=== PATIENT | female | born 1980 | race Caucasian/White ===

== ENCOUNTER 2020-07-25 12:43 | Outpatient (REF) | payer OTHER, SELFPAY | END 2020-07-25 12:44 | disposition home or self-care (01) | LOC: HO.LAB 12:43 | PROVIDERS: Visit Provider Internal Medicine | DX: Z20.828 Contact with and (suspected) exposure to other viral communicable diseases (principal) | CPT/HCPCS: C9803; U0003 ==

== ENCOUNTER 2020-08-09 09:31 | Outpatient (REF) | payer OTHER, SELFPAY ==
[2020-08-09 10:39] LABS: Estimated Average Glucose 105 mg/dL; Hemoglobin A1c % 5.3 %
[2020-08-09 10:44] LABS: Alanine Aminotransferase 16 U/L (0-31); Albumin Level 4.3 g/dL (3.5-5.0); Alkaline Phosphatase 66 U/L (39-117); Anion Gap 13 (12-20); Aspartate Amino Transferase 17 U/L (5-31); Bilirubin Total 0.4 mg/dL (0.0-1.0); Blood Urea Nitrogen 14 mg/dL (9-16); C Reactive Protein 0.42 mg/dL (< or = 0.50); Calcium 8.6 mg/dL (8.4-10.2); Carbon Dioxide 24 mmol/L (22-29); Chloride 108 mmol/L (96-108); Cholesterol 181 mg/dL; Estimated Glomerular Filt Rate > 60; Glucose Fasting 90 mg/dL (60-99); HDL Cholesterol 33 mg/dL; LDL Cholesterol Calculated 120 mg/dl; Potassium 4.5 mmol/l (3.3-5.1); Sodium 140 mmol/L (135-145); Total Protein 7.2 g/dL (6.5-8.0); Triglycerides 140 mg/dL
[2020-08-09 11:00] LABS: Erythrocyte Sedimentation Rate 7 MM/HR (0-20)
== END 2020-08-09 09:32 | disposition home or self-care (01) ==
LOC: HO.LAB 09:31
PROVIDERS: PCP Internal Medicine; Visit Provider Physician Assistant
DX: R51.9 Headache, unspecified (principal); Z13.1 Encounter for screening for diabetes mellitus; Z13.220 Encounter for screening for lipoid disorders
CPT/HCPCS: 36415; 80053; 80061; 83036; 84443; 85652; 86140

== ENCOUNTER 2020-08-23 09:40 | Outpatient (REF) | payer OTHER, SELFPAY ==
--- NOTE | 2020-08-23 09:43 | CT_ITS ---
EXAMINATION: CT HEAD WITHOUT CONTRAST CLINICAL INFORMATION: Headache. COMPARISON: MR brain and CT had dated 12/09/2016. TECHNIQUE: Contiguous axial imaging was performed from the skull base to vertex without intravenous administration of contrast. This CT examination was performed using dose optimization techniques as appropriate, variously including the following: *Automated exposure control *Adjustment of mA and/or kV according to patient size (this includes techniques or standardized protocols for targeted exams where dose is matched to indication/reason for exam; i.e. extremities or head) *Use of iterative reconstruction technique DLP: 747 mGy-cm. FINDINGS: There is no evidence of acute intracranial hemorrhage or territorial infarction. No abnormal mass effect or midline shift is seen. Ahmadi to white matter differentiation is well preserved. No extra-axial fluid collections are identified. The ventricles are normal in size. There is no abnormal attenuation within the brain parenchyma. The osseous structures and soft tissues are normal. The mastoid air cells and visualized portions of the paranasal sinuses are well aerated. CT/CT head/brain wo con IMPRESSION: No acute intracranial hemorrhage or mass effect.
== END 2020-08-23 09:41 | disposition home or self-care (01) ==
LOC: HO.CT 09:40
PROVIDERS: PCP Internal Medicine; Visit Provider Physician Assistant
DX: R51.9 Headache, unspecified (principal)
CPT/HCPCS: 70450

== ENCOUNTER → 2021-04-20 12:14 | Outpatient (REF) | payer OTHER, SELFPAY ==
--- NOTE | 2021-04-20 12:19 | ECG_ITS ---
Test Reason : PREOP Blood Pressure : / mmHG Vent. Rate : 055 BPM Atrial Rate : 055 BPM P-R Int : 138 ms QRS Dur : 074 ms QT Int : 456 ms P-R-T Axes : 060 055 040 degrees QTc Int : 436 ms Sinus bradycardia Otherwise normal ECG When compared with ECG of 08-JUL-2018 12:59, Heart rate has decreased T wave inversion no longer evident in Inferior leads Referred By: Rosamaira Khan Electronically Signed By:MENA MCKEON
[2021-04-20 13:01] LABS: MANUAL DIFF FLAG NO
[2021-04-20 13:13] LABS: INTERNATIONAL NORM RATIO 1.1 (0.9-1.1)
[2021-04-20 13:22] LABS: Basophils Absolute Auto 0.1 X10*3/uL (0.0-0.2); Eosinophils Absolute Auto 0.1 X10*3/uL (0.0-0.4); Eosinophils Percent Auto 1.1 % (0-4); Hemoglobin 12.2 g/dl (12.0-16.0); Imm Gran Abs Auto 0.03 X10*3/uL (0.00-0.03); Imm Gran Pct Auto 0.6 % (0.0-0.4); Lymphocytes Absolute Auto 2.7 X10*3/uL (1.2-4.9); Lymphocytes Percent Auto 52.3 % (20-40); Mean Corpuscular Hemoglobin 29.4 pg (27.0-33.0); Mean Corpuscular Volume 89.2 fL (80-98); Monocytes Absolute Auto 0.5 X10*3/uL (0.1-1.2); Monocytes Percent Auto 9.5 % (2-11); Neutrophils Absolute Auto 1.9 X10*3/uL (2.0-8.3); Neutrophils Percent Auto 35.5 % (45-73); Platelet Count 207 X10*3/uL (160-400); Red Blood Count 4.15 X10*6/uL (4.20-5.50); Red Cell Distribution Width 13.9 % (11.0-16.0); White Blood Count 5.2 X10*3/uL (4.8-10.8)
[2021-04-20 13:30] LABS: Estimated Average Glucose 103 mg/dL; Hemoglobin A1c % 5.2 %
[2021-04-20 13:46] LABS: Alanine Aminotransferase 17 U/L (0-31); Albumin Level 4.4 g/dL (3.5-5.0); Alkaline Phosphatase 76 U/L (39-117); Anion Gap 11 (12-20); Aspartate Amino Transferase 20 U/L (5-31); Bilirubin Total 0.3 mg/dL (0.0-1.0); Blood Urea Nitrogen 11 mg/dL (9-16); Calcium 9.2 mg/dL (8.4-10.2); Carbon Dioxide 23 mmol/L (22-29); Chloride 107 mmol/L (96-108); Estimated Glomerular Filt Rate > 60; Glucose Fasting 86 mg/dL (60-99); Sodium 137 mmol/L (135-145); Total Protein 7.1 g/dL (6.5-8.0)
[2021-04-20 13:51] LABS: HCG Quantitative < 2 mIU/mL; T4 Thyroxine 5.4 ug/dL (4.5-12.0); Thyroid Stimulating Hormone 1.16 uIU/mL (0.32-4.0)
[2021-04-20 13:56] LABS: Appearance Urine HAZY; Color Urine YELLOW; Glucose Urine UA NEG (NEG); Leukocyte Esterase Urine NEG (NEG); Nitrite Urine NEG (NEG); Urine Blood NEG (NEG); Urine Ketones NEG (NEG); Urine Protein NEG (NEG-TRACE)
[2021-04-21 04:57] LABS: HIV AB/AG Nonreactive (Nonreactive); HIV Num 1 0.07 S/CO (0.00-0.99)
[2021-04-23 15:16] LABS: Triiodothyronine T3 Total 97 ng/dL (76-181)
== END ==
LOC: HO.CARD 12:14
PROVIDERS: PCP Internal Medicine; Visit Provider Internal Medicine
DX: Z01.818 Encounter for other preprocedural examination (principal); G43.909 Migraine, unspecified, not intractable, without status migrainosus
CPT/HCPCS: 36415; 80053; 81003; 83036; 84436; 84443; 84480; 84702; 85025; 85610; 85730; 87389; 93005

== ENCOUNTER 2021-12-05 12:15 | Outpatient (REF) | payer OTHER, SELFPAY ==
[2021-12-05 13:33] LABS: Alanine Aminotransferase 16 U/L (0-31); Albumin Level 4.6 g/dL (3.5-5.0); Alkaline Phosphatase 72 U/L (39-117); Anion Gap 10 (12-20); Aspartate Amino Transferase 17 U/L (5-31); Bilirubin Total 0.4 mg/dL (0.0-1.0); Blood Urea Nitrogen 13 mg/dL (9-16); Carbon Dioxide 27 mmol/L (22-29); Chloride 105 mmol/L (96-108); Estimated Glomerular Filt Rate > 60; Glucose Random 83 mg/dL (60-115); Potassium 4.4 mmol/L (3.3-5.1); Sodium 138 mmol/L (135-145); Total Protein 7.8 g/dL (6.5-8.0)
[2021-12-05 13:39] LABS: Appearance Urine HAZY; Color Urine YELLOW; Glucose Urine UA NEG (NEG); Leukocyte Esterase Urine NEG (NEG); Nitrite Urine NEG (NEG); PH 6.5 (5.0-8.0); UACC Culture Trigger NO; Urine Blood 3+ (NEG); Urine Ketones NEG (NEG); Urine Protein TRACE MG/DL (NEG-TRACE)
[2021-12-05 14:06] LABS: RBC Urine 50-75 /HPF (0); Squamous Epithelial Cell Urine 1+ /LPF; WBC Urine 0-2 /HPF (0-4)
== END 2021-12-05 12:16 | disposition home or self-care (01) ==
LOC: HO.LAB 12:15
PROVIDERS: PCP Internal Medicine; Visit Provider Nurse Practitioner Family
DX: R35.0 Frequency of micturition (principal); Z98.890 Other specified postprocedural states
CPT/HCPCS: 36415; 80053; 81001

== ENCOUNTER 2022-04-06 09:46 | Emergency (ER) | payer OTHER, SELFPAY ==
[2022-04-06 10:39] VITALS: BP 106/81; PULSE 63; RESP 20; TEMP 36.7; O2SAT 98; BMI 28.3
[2022-04-06] MEDS: Acetaminophen 325 MG TABLET 650 MG PO (10:58)
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
== END 2022-04-06 14:09 | disposition home or self-care (01) ==
PROVIDERS: Emergency Provider Emergency Medicine; PCP Internal Medicine
DX: M54.2 Cervicalgia (principal); M79.10 Myalgia, unspecified site; R42 Dizziness and giddiness; Z87.891 Personal history of nicotine dependence; Z79.899 Other long term (current) drug therapy
CPT/HCPCS: 99283

== ENCOUNTER 2022-09-21 08:27 | Outpatient (REF) | payer OTHER, SELFPAY ==
[2022-09-21 09:22] LABS: Alanine Aminotransferase 15 U/L (0-31); Albumin Level 4.4 g/dL (3.5-5.0); Alkaline Phosphatase 88 U/L (39-117); Anion Gap 12 (12-20); Aspartate Amino Transferase 16 U/L (5-31); Bilirubin Total 0.5 mg/dL (0.0-1.0); Blood Urea Nitrogen 15 mg/dL (9-16); Calcium 9.2 mg/dL (8.4-10.2); Carbon Dioxide 23 mmol/L (22-29); Chloride 108 mmol/L (96-108); Cholesterol 196 mg/dL; Estimated Glomerular Filt Rate > 60; Glucose Fasting 92 mg/dL (60-99); HDL Cholesterol 36 mg/dL; LDL Cholesterol Calculated 136 mg/dl; Potassium 4.1 mmol/L (3.3-5.1); Sodium 139 mmol/L (135-145); Total Protein 7.4 g/dL (6.5-8.0); Triglycerides 124 mg/dL
== END 2022-09-21 08:28 | disposition home or self-care (01) ==
LOC: HO.LAB 08:27
PROVIDERS: PCP Internal Medicine; Visit Provider Internal Medicine
DX: Z00.00 Encounter for general adult medical examination without abnormal findings (principal); E78.5 Hyperlipidemia, unspecified
CPT/HCPCS: 36415; 80053; 80061

== ENCOUNTER → 2022-10-15 10:31 | Outpatient (BNVA) | payer OTHER, SELFPAY | PROVIDERS: PCP Internal Medicine; Visit Provider Internal Medicine | DX: S13.4XXD Sprain of ligaments of cervical spine, subsequent encounter (principal); M54.12 Radiculopathy, cervical region; M47.816 Spondylosis without myelopathy or radiculopathy, lumbar region | CPT/HCPCS: 99202 ==

== ENCOUNTER 2022-11-08 14:43 | Outpatient (RCR) | payer OTHER, SELFPAY ==
--- NOTE | 2022-11-08 16:33 | MHC.PT.EP ---
[facility] [place] Office [place] Office [place] Office [address] Flavio Dubose [address] [phone] F: [phone] F: [phone] F: [phone] F: [phone] Physical Therapy Plan of Care Date of Evaluation: Date of Surgery: Diagnosis: cervical radiculopathy lumbar spondylosis without myeolopathy or radiculopathy Assessment: Patient is a 41 y.o. Bulgarian speaking female who is referred to PT by Dr. Nestor Mercedes MD with Dx of cervical radiculopathy lumbar spondylosis without myeolopathy or radiculopathy. There is multi-level cervical disc protrusion seen on MRI, worst at C4-C5 which shows disc extrusion. Patient impairments include poor posture, pain, radicular sxs, limited ROM, weakness. 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 Patient will benefit from skilled PT to address aforementioned impairments and functional limitations to meet established goals. Frequency and Duration: The patient will be seen 2x/week for 4 weeks Short Term Goals: 2 weeks Patient demonstrates consistency and independence with HEP to self manage symptoms. Patient presents without slouched sitting posture to reduce neck and back strain to tolerate prolonged sitting to drive. Slope Runner Goals: 4 weeks Patient presents with increased cervical rotation 65 degrees bilaterally to look over shoulders when driving. Patient presents with increased lumbar flexion 80 degrees to be able to bend for work tasks. Treatment Plan: Modalities to reduce pain, spasms and effusion. Manual therapy to restore motion and function. Therapeutic exercise to improve strength and flexibility. Neuromuscular re-education for posture and balance. Therapeutic activities to return to functional activities of daily living. Electronically signed by: Imelda Flores, PT, DPT Please sign and return to therapist. Thank you for your referral.
--- NOTE | 2022-12-19 17:05 | MHC.PT.DC ---
[facility] [place] Office [place] Office [place] Office [address] Flavio Dubose [address] [phone] F: [phone] F: [phone] F: [phone] F: [phone] Physical Therapy Discharge Report Diagnosis: cervical radiculopathy lumbar spondylosis without myeolopathy or radiculopathy Date of Surgery: Date of Evaluation: 11/08/22 Date of Discharge: 12/19/22 Treatments to Date: 1 Cancellations to Date: No Shows to Date: 7 Discharge Status: Visit Non-compliance Discharge Summary: Patient did not show to any appointment after her initial evaluation. She is discharged for non compliance with attendance policy. Electronically signed by: Imelda Flores PT, DPT Please sign and return to therapist. Thank you for your referral.
== END 2022-12-19 17:05 | disposition home or self-care (01) ==
LOC: HO.PT 14:43
PROVIDERS: PCP Internal Medicine; Visit Provider Internal Medicine
DX: M54.12 Radiculopathy, cervical region (principal); M47.816 Spondylosis without myelopathy or radiculopathy, lumbar region
CPT/HCPCS: 97110; 97162

== ENCOUNTER 2023-11-05 14:57 | Outpatient (AMB) | payer OTHER, SELFPAY ==
[2023-11-05 15:11] VITALS: BP 118/80; PULSE 80; O2SAT 98; BMI 29.8
--- NOTE | 2023-11-05 15:11 | MHC.PC.OV ---
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: No Accompanied by: Self / Same As Patient Allergies No Known Allergies [No Known Allergies*] Allergy (Verified 11/05/23 15:34) Medication List - Last Reconciled 11/05/23 by Rosamaria Khan MD cyclobenzaprine 10 mg PO TID PRN 30 days ibuprofen 600 mg PO Q8H PRN lidocaine 5% 1 patch topical DAILY sumatriptan succinate 50 mg PO Q2-4H PRN 30 days topiramate 25 mg PO BEDTIME 90 days Tobacco use date assessed: 11/05/23 Dental Screening Dental Screen Date: 11/05/23 Did you have a dental visit in the last 12 months?: Yes Did you have a dental problem in the last 6 months where you did not have access to dental care?: No Was dental information given to patient?: Patient has dentist HPI HPI Comments History of Present Illness Details This is a 42-year-old female that comes for preop evaluation for liposuction and fat transfer to breast scheduled for 11/26/2023. She denies any chest pain or shortness of breath. Has 5-7 Mets of ADLs. EKG and labs are pending for medical clearance. [facility] Medical History (Updated 11/05/23 @ 15:39 by Rosamaria Khan MD) Overweight (BMI 25.0-29.9) Migraines Surgical History History of kidney surgery Tubal ligation status H/O LEEP Family History Father Heart problem Hypertension Mother Hypertension Parkinson disease Maternal Grandmother Diabetes Hypertension Family/Other FH: mental illness Social History Housing: House Alcohol intake: current Alcohol intake frequency: holidays/special occasions only Alcohol type: hard liquor Patient Tobacco Use Status: Former Tobacco user Tobacco use type: Cigarette e-Cigarette/Vaping Use: Never Used Second Hand Smoke Exposure: No service: No Current occupational status: employed Current occupational exposures/hazards: No Cognitive needs: No Hearing needs: No Vision needs: Yes Questionnaire PHQ-9 Over the last 2 weeks, how often have you been bothered by any of the following problems? 1. Little interest or pleasure in doing things: not at all 2. Feeling down, depressed, or hopeless: not at all 3. Trouble falling or staying asleep, or sleeping too much: not at all 4. Feeling tired or having little energy: not at all 5. Poor appetite or overeating: not at all 6. Feeling bad about yourself - or that you are a failure or have let yourself or your family down: not at all 7. Trouble concentrating on things, such as reading the newspaper or watching television: not at all 8. Moving or speaking so slowly that other people could have noticed. Or the opposite - being so fidgety or restless that you have been moving around a lot more than usual: not at all 9. Thoughts that you would be better off or of hurting yourself in some way: not at all Total score: 0 Depression Screening Interpretation: Negative Depression Screening Done: Yes 88147 - PHQ-9 Billing: Yes Source: Developed by Drs. Asaf Adler, Rosa Elena Locke, James Mendez and colleagues, with an educational veronica from [employer]. Thrive Questionnaire Date Thrive assessed: 11/05/23 I am a: Patient What is your living situation today?: I have a steady place to live Within the past 12 months, did the food you bought not last and you didn't have the money to get more?: Never true Within the past 12 months, did you worry whether your food would run out before you got money to buy more?: Never true Do you have trouble paying for medicines?: No Do you have trouble getting transportation to medical appointments?: No Do you have trouble paying your heating and electricity bill?: No Do you have trouble taking care of your child, family member or friend?: No Do you have trouble with day-to-day activities such as bathing, preparing meals, shopping, managing finances, etc.?: No Are you currently unemployed and looking for a job?: No Are you interested in more education?: No Please select the resources that you would like help with: None Currently or been in a relationship where the following occur: no concerns reported THRIVE Score: 0 AUDIT C Alcohol Use Questionnaire (AUDIT-C) 1. How often do you have a drink containing alcohol?: Monthly or less 2. How many drinks containing alcohol do you have on a typical day when you are drinking?: 1 or 2 3. How often do you have six or more drinks on one occasion?: Never Total Score: 1 Score Reviewed/Action Taken: No KATARZYNA-7 AMB Questionnaire KATARZYNA-7 Date KATARZYNA - 7 assessed: 11/05/23 Feeling nervous, anxious, or on edge: 0 = Not at all Not being able to stop or control worryin = Not at all Worrying too much about different things: 0 = Not at all Trouble relaxin = Not at all Being so restless that it is hard to sit still: 0 = Not at all Becoming easily annoyed or irritable: 0 = Not at all Feeling afraid as if something awful might happen: 0 = Not at all Total KATARZYNA-7 score (0-4 normal; 5-9 mild; 10-14 moderate; 15-21 severe): 0 Source: Developed by Drs. Asaf Adler, Rosa Elena Locke, James Mendez and colleagues, with an educational veronica from [employer]. KATARZYNA-7 Assessment Billing KATARZYNA-7 Assessment Tool: KATARZYNA-7 Assessment 51775 Review of Systems Const All systems reviewed & are unremarkable except as noted in HPI and below Eyes Reports no additional complaints, Denies change in vision and Denies other visual disturbances Card Denies chest pain at rest, Denies chest pain with activity, Denies edema, Denies irregular heart rhythm, Denies claudication, Denies dyspnea, Denies dyspnea on exertion, Denies orthopnea, Denies paroxysmal nocturnal dyspnea and Denies slow heart rate Resp Denies cough, Denies dyspnea and Denies dyspnea on exertion GI Denies abdominal pain, Denies change in bowel habits, Denies excessive flatus, Denies nausea and Denies vomiting Denies urinary incontinence, Denies urinary hesitancy and Denies urinary urgency Musc Denies abnormal gait, Denies atrophy, Denies deformity and Denies limited range of motion Skin/Breast Denies bleeding lesions, Denies changing lesions and Denies rash Neuro Denies abnormal gait, Denies behavioral changes, Denies confusion and Denies lack of coordination Psych Denies behavioral changes and Denies confusion Physical exam (Primary Care) Vital Signs: Last Vital Signs Pulse 80 11/05/23 15:11 BP 118/80 11/05/23 15:11 Pulse Ox 98 11/05/23 15:11 Oxygen Delivery Method Room Air 11/05/23 15:11 BMI result Body Mass Index 29.8 Tobacco/Smoking Status: Tobacco use Status Tobacco use date assessed 11/05/23 11/05/23 15:21 Patient Tobacco Use Status Former Tobacco user 11/05/23 15:21 Tobacco use type Cigarette 11/05/23 15:21 e-Cigarette/Vaping Use Never Used 11/05/23 15:21 PHQ-9: PHQ-9 Score PHQ-9: Total score 0 11/05/23 15:25 Depression Screening Interpretation: Negative Thrive Assessment: Date of Thrive Assessment Date Thrive assessed 11/05/23 11/05/23 15:25 Currently or been in a relationship where the following occur: no concerns reported Const General: No confusion Orientation/consciousness: patient oriented x3 and No confusion Resp Effort & Inspection: normal respiratory effort Auscultation: clear to auscultation bilaterally Cardio Jugular venous distension: no JVD Rate: regular rate Rhythm: regular rhythm Heart sounds: S1 normal heart sound present and S2 normal heart sound present Neuro General: patient oriented x3, no focal motor deficits and No confusion Extrem General: Yes full ROM Psych Appearance: grossly normal Assessment and Plan Assessment & Plan (1) Pre-op evaluation: Code(s): Z01.818 - Encounter for other preprocedural examination Plan: EKG and labs pending for medical clearance. Orders: Orders ECG 12 lead EKG Today Z818 - Encounter for other preprocedural examination HIV Ab/Ag Today Z.818 - Encounter for other preprocedural examination Prothrombin Time INR Today Z.818 - Encounter for other preprocedural examination Partial Thromboplastin Time Today Z.818 - Encounter for other preprocedural examination XR chest 2V Today Z01.818 - Encounter for other preprocedural examination MM screening mammo BI Today Z01.818 - Encounter for other preprocedural examination, Z12.31 - Encounter for screening mammogram for malignant neoplasm of breast Complete Blood Count Auto Diff Today D64.9 - Anemia, unspecified, Z01.818 - Encounter for other preprocedural examination Comprehensive Fulda. Panel Fast Today Z.818 - Encounter for other preprocedural examination Thyroid Stimulating Hormone Today Z01.818 - Encounter for other preprocedural examination Medications: Refilled lidocaine 5% leave on most painful area for up to 12 hrs 1 patch topical DAILY 15 ea 0RF cyclobenzaprine 10 mg PO TID 30 days PRN 90 tabs 1RF muscle spasm ibuprofen 600 mg PO Q8H PRN 10 tabs 0RF pain Coding Level of Care Code Est Pt Level 3 (10602) Diagnoses Pre-op evaluation Z01.818 Additional Codes KATARZYNA-7 Assessment Billing - KATARZYNA-7 Assessment Tool: KATARZYNA-7 Assessment 43430 ([id number]) Time Spent (min) 19
== END 2023-11-05 15:46 | disposition home or self-care (01) ==
PROVIDERS: PCP Internal Medicine; Visit Provider Internal Medicine
DX: Z01.818 Encounter for other preprocedural examination (principal)
CPT/HCPCS: 99213

== ENCOUNTER 2023-11-06 09:15 | Outpatient (REF) | payer OTHER, SELFPAY ==
--- NOTE | ~2023-11-06 | XR_ITS ---
EXAMINATION: XR CHEST CLINICAL INFORMATION: Preprocedure chest x-ray. COMPARISON: 07/08/2018 TECHNIQUE: 2 views of the chest were obtained. FINDINGS: There is no gross pneumothorax. Mild dextroscoliosis of the thoracic spine. Heart size is normal. No pleural effusion. No focal consolidation to suggest pneumonia. XR/XR chest 2V IMPRESSION: No evidence of pneumonia.
--- NOTE | 2023-11-06 09:32 | ECG_ITS ---
Test Reason : preop Blood Pressure : / mmHG Vent. Rate : 060 BPM Atrial Rate : 060 BPM P-R Int : 136 ms QRS Dur : 074 ms QT Int : 442 ms P-R-T Axes : 020 045 024 degrees QTc Int : 442 ms Normal sinus rhythm with sinus arrhythmia Normal ECG When compared with ECG of 20-APR-2021 12:22, No significant change was found Referred By: Rosamaria Khan Electronically Signed By:Alexis Bravo
[2023-11-06 09:36] LABS: Hematocrit 36.1 % (37.0-47.0); Mean Corpuscular HGB Conc 33.2 g/dl (31.0-35.0); Mean Corpuscular Hemoglobin 29.1 pg (27.0-33.0); Mean Corpuscular Volume 87.6 fL (80.0-98.0); Mean Platelet Volume 11.9 fL (9.4-12.3); Platelet Count 238 X10*3/uL (160-400); Red Blood Count 4.12 X10*6/uL (4.20-5.50); Red Cell Distribution Width 13.4 % (11.0-16.0)
[2023-11-06 09:39] LABS: WBC ABN SCTR FOR CBC 1
[2023-11-06 09:41] LABS: INTERNATIONAL NORM RATIO 0.9 (0.9-1.1); Prothrombin Time 11.5 SEC (11.1-13.3)
[2023-11-06 09:44] LABS: Partial Thromboplastin Time 31.8 SEC (26.0-36.8)
[2023-11-06 10:08] LABS: Alanine Aminotransferase 22 U/L (0-31); Albumin Level 4.2 g/dL (3.5-5.0); Alkaline Phosphatase 85 U/L (39-117); Anion Gap 10 (12-20); Aspartate Amino Transferase 18 U/L (5-31); Bilirubin Total 0.3 mg/dL (0.0-1.0); Blood Urea Nitrogen 14 mg/dL (9-16); Calcium 9.1 mg/dL (8.4-10.2); Carbon Dioxide 24 mmol/L (22-29); Chloride 110 mmol/L (96-108); Estimated Glomerular Filt Rate > 60; Glucose Fasting 95 mg/dL (60-99); Sodium 140 mmol/L (135-145); Total Protein 7.5 g/dL (6.5-8.0)
[2023-11-06 10:18] LABS: HIV AB/AG Nonreactive (Nonreactive); HIV Num 1 0.07 S/CO (0.00-0.99)
[2023-11-06 10:25] LABS: Thyroid Stimulating Hormone 1.23 uIU/mL (0.32-4.0)
[2023-11-06 10:33] LABS: Band Neutrophils Percent 1 % (3-5); Eosinophils Absolute Manual 0.2 X10*3/uL (0.0-0.4); Eosinophils Percent Manual 4 % (0-4); Lymphocytes Absolute Manual 2.4 X10*3/uL (1.2-4.9); Lymphocytes Percent Manual 60 % (20-40); Monocytes Absolute Manual 0.2 X10*3/uL (0.1-1.2); Monocytes Percent Manual 4 % (2-11); Neutrophils Absolute Manual 1.3 X10*3/uL (2.0-8.3); Neutrophils Percent Manual 31 % (45-73)
[2023-11-06 10:35] LABS: Large Platelet PRESENT; Platelet Estimate NORMAL (NORMAL); Platelet Morphology Comment NOTED; RBC Morphology NORMAL
== END 2023-11-06 09:16 | disposition home or self-care (01) ==
LOC: HO.LAB 09:15
PROVIDERS: PCP Internal Medicine; Visit Provider Internal Medicine
DX: Z01.818 Encounter for other preprocedural examination (principal); Z11.4 Encounter for screening for human immunodeficiency virus [HIV]
CPT/HCPCS: 36415; 71046; 80053; 84443; 85007; 85027; 85610; 85730; 87389; 93005

== ENCOUNTER → 2023-11-06 09:32 | Outpatient (BNV) | payer OTHER, SELFPAY | PROVIDERS: PCP Internal Medicine; Visit Provider Internal Medicine Cardiovascular Disease | DX: Z01.818 Encounter for other preprocedural examination (principal) | CPT/HCPCS: 93010 ==

== ENCOUNTER 2023-11-09 09:42 | Outpatient (REF) | payer OTHER, SELFPAY | END 2023-11-09 09:43 | disposition home or self-care (01) | LOC: HO.MAMMO 09:42 | PROVIDERS: PCP Internal Medicine; Visit Provider Internal Medicine | DX: Z12.31 Encounter for screening mammogram for malignant neoplasm of breast (principal) | CPT/HCPCS: 77063; 77067 ==

== ENCOUNTER → 2023-11-09 10:15 | Outpatient (BNV) | payer OTHER, SELFPAY | PROVIDERS: PCP Internal Medicine; Visit Provider Radiology Diagnostic Radiology | DX: Z12.31 Encounter for screening mammogram for malignant neoplasm of breast (principal) | CPT/HCPCS: 77063; 77067 ==

== ENCOUNTER 2024-03-17 13:15 | Outpatient (REF) | payer OTHER, SELFPAY ==
--- NOTE | ~2024-03-17 | US_ITS ---
EXAMINATION: US DIAGNOSTIC ULTRASOUND BREAST, BILATERAL CLINICAL INFORMATION: 43-year-old female complaining of palpable foci all 4 quadrants of left breast and palpable focus 12:00 right breast. Patient describes a history of having fat injections into her breasts in [place]. COMPARISON: None contributory. TECHNIQUE: Ultrasound of both breasts was performed with real-time elmore scale imaging and color Doppler. Attention was focused to the 12:00 axis right breast to correlate with the palpable focus, and all 4 quadrants of the left breast. FINDINGS: RIGHT BREAST: -In the 12:00 axis of the right breast, 3 cm from the nipple, there is a partially cystic hyperechoic oval circumscribed mass with edge shadowing no posterior features. No internal Doppler flow. This measures 3.7 x 3.0 x 2.2 cm. This correlates with the palpable focus of concern. LEFT BREAST: There are numerous oval masses which are echogenic with similar ultrasound features, circumscribed, in the 12:00 axis, 3 cm from the nipple, in the 3:00 axis, 3 cm from the nipple, 5:00 axis VII cm from the nipple, as well as 7:00 axis IV cm from the nipple. Largest on the left measures 2.8 x 2.3 x 1.6 cm. Findings and bilateral breasts are numerous foci of fat necrosis, certainly related to the patient's description of having fat injections into her breasts in the recent past. No suspicious findings in either breast. US/US breast BI limited mamm only IMPRESSION: Benign findings bilateral breasts related to fat necrosis due to patient's stated history of surgery as described above. No findings suspicious for malignancy. Recommend clinical management and follow-up, otherwise recommend 1 year mammography. ASSESSMENT: BI-RADS 2: Benign RECOMMENDATION: 1. Patient should be managed based on the clinical impression. 2. Otherwise, routine annual screening mammography. This patient's information was entered into a reminder system with a target due date for their next mammogram.
== END 2024-03-17 13:16 | disposition home or self-care (01) ==
LOC: HO.MAMMO 13:15
PROVIDERS: PCP Internal Medicine; Visit Provider Surgery
DX: N63.0 Unspecified lump in unspecified breast (principal)
CPT/HCPCS: 76642

== ENCOUNTER → 2024-03-17 13:30 | Outpatient (BNV) | payer OTHER, SELFPAY | PROVIDERS: PCP Internal Medicine; Visit Provider Radiology Diagnostic Radiology | DX: N63.15 Unspecified lump in the right breast, overlapping quadrants (principal); N63.25 Unspecified lump in the left breast, overlapping quadrants | CPT/HCPCS: 76642 ==

== ENCOUNTER 2024-05-27 08:54 | Outpatient (AMB) | payer OTHER, SELFPAY ==
--- NOTE | 2024-05-27 08:58 | MHC.PC.OV ---
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 Mammogram done 2023. Pap smear done 2023 as per patient was normal. She complains of migraines that has been happening more frequently and would like to see Neurology. Also has left hand pain with numbness and tingling. Positive Phalen and Tinel test. I will order nerve conduction study and refer her to ortho. She had a breast augmentation and an abdominoplasty in November of this year and now has developed bilateral breast masses. She did contact plastic surgeon in [place] [address] and had an ultrasound of both breasts done in March showing multiple benign breast masses. Plastic surgeon wanted another ultrasound of the breast bilateral. [facility] Medical History (Updated 05/27/24 @ 09:26 by Rosamaria Khan MD) Overweight (BMI 25.0-29.9) Migraines Surgical History (Updated 05/27/24 @ 09:30 by Rosamaria Khan MD) H/O breast augmentation H/O abdominoplasty History of kidney surgery Tubal ligation status H/O LEEP Family History Father Heart problem Hypertension Mother Hypertension Parkinson disease Maternal Grandmother Diabetes Hypertension Family/Other FH: mental illness Social History (Updated 05/27/24 @ 09:13 by Rosamaria Khan MD) Housing: House Alcohol intake: current Alcohol intake frequency: holidays/special occasions only Alcohol type: hard liquor Patient Tobacco Use Status: Former Tobacco user Tobacco use type: Cigarette e-Cigarette/Vaping Use: Never Used Second Hand Smoke Exposure: No service: No Current occupational status: unemployed Cognitive needs: No Hearing needs: No Vision needs: Yes Questionnaire PHQ-9 Over the last 2 weeks, how often have you been bothered by any of the following problems? 1. Little interest or pleasure in doing things: not at all 2. Feeling down, depressed, or hopeless: not at all 3. Trouble falling or staying asleep, or sleeping too much: nearly every day 4. Feeling tired or having little energy: several days 5. Poor appetite or overeating: not at all 6. Feeling bad about yourself - or that you are a failure or have let yourself or your family down: not at all 7. Trouble concentrating on things, such as reading the newspaper or watching television: not at all 8. Moving or speaking so slowly that other people could have noticed. Or the opposite - being so fidgety or restless that you have been moving around a lot more than usual: not at all 9. Thoughts that you would be better off or of hurting yourself in some way: not at all Total score: 4 Depression Screening Interpretation: Positive Depression Screening Follow-up: Existing condition and Follow-up Visit Requested Depression Screening Done: Yes 46501 - PHQ-9 Billing: Yes Source: Developed by Drs. Asaf Adler, Rosa Elena Locke, James Mendez and colleagues, with an educational veronica from [employer]. Thrive Questionnaire Date Thrive assessed: 05/27/24 I am a: Patient What is your living situation today?: I have a steady place to live Within the past 12 months, did the food you bought not last and you didn't have the money to get more?: Often true Within the past 12 months, did you worry whether your food would run out before you got money to buy more?: Often true Do you have trouble paying for medicines?: No Do you have trouble getting transportation to medical appointments?: No Do you have trouble paying your heating and electricity bill?: No Do you have trouble taking care of your child, family member or friend?: No Do you have trouble with day-to-day activities such as bathing, preparing meals, shopping, managing finances, etc.?: No Are you currently unemployed and looking for a job?: I choose not to answer this question Are you interested in more education?: No Please select the resources that you would like help with: None Currently or been in a relationship where the following occur: No concerns reported THRIVE Score: 2 AUDIT C Alcohol Use Questionnaire (AUDIT-C) 1. How often do you have a drink containing alcohol?: Monthly or less 2. How many drinks containing alcohol do you have on a typical day when you are drinking?: 1 or 2 3. How often do you have six or more drinks on one occasion?: Never Total Score: 1 Score Reviewed/Action Taken: No KATARZYNA-7 AMB Questionnaire KATARZYNA-7 Date KATARZYNA - 7 assessed: 05/27/24 Feeling nervous, anxious, or on edge: 0 = Not at all Not being able to stop or control worryin = Not at all Worrying too much about different things: 0 = Not at all Trouble relaxin = Not at all Being so restless that it is hard to sit still: 0 = Not at all Becoming easily annoyed or irritable: 0 = Not at all Feeling afraid as if something awful might happen: 0 = Not at all Total KATARZYNA-7 score (0-4 normal; 5-9 mild; 10-14 moderate; 15-21 severe): 0 Source: Developed by Drs. Asaf Adler, Rosa Elena Locke, James Mendez and colleagues, with an educational veronica from [employer]. KATARZYNA-7 Assessment Billing KATARZYNA-7 Assessment Tool: KATARZYNA-7 Assessment 66819 Review of Systems Const All systems reviewed & are unremarkable except as noted in HPI and below Reports headache(s) ENT Reports headache(s) Card Denies chest pain at rest, Denies chest pain with activity, Denies edema, Denies irregular heart rhythm, Denies claudication, Denies dyspnea, Denies dyspnea on exertion, Denies orthopnea, Denies paroxysmal nocturnal dyspnea and Denies slow heart rate Resp Denies cough, Denies dyspnea and Denies dyspnea on exertion GI Denies abdominal pain, Denies change in bowel habits, Denies excessive flatus, Denies nausea and Denies vomiting Musc Reports arthralgias, Reports numbness and Reports tingling Skin/Breast Reports breast pain and Reports breast mass Neuro Reports headache(s), Reports numbness and Reports tingling Physical exam (Primary Care) Vital Signs: Last Vital Signs BP 136/82 05/27/24 09:00 BMI result Body Mass Index 28.3 BMI Assessment/Plan discussion: High BMI High, discussed plan: lifestyle, weight reduction, dietary and physical activity Tobacco/Smoking Status: Tobacco use Status Tobacco use date assessed 11/05/23 05/27/24 09:05 Patient Tobacco Use Status Former Tobacco user 05/27/24 09:13 Tobacco use type Cigarette 05/27/24 09:13 e-Cigarette/Vaping Use Never Used 05/27/24 09:13 PHQ-9: PHQ-9 Score PHQ-9: Total score 4 05/27/24 10:20 Depression Screening Interpretation: Positive Depression Screening Follow-up: Existing condition and Follow-up Visit Requested Thrive Assessment: Date of Thrive Assessment Date Thrive assessed 05/27/24 05/27/24 09:05 Currently or been in a relationship where the following occur: No concerns reported HENMT Head: Yes normal to inspection, Yes normocephalic and Yes atraumatic Ears: external ears normal Eyes General: appearance normal, both eyes and all related structures Eyelids: Yes eyelids normal Conjunctivae: conjunctivae normal Neck Neck: Yes normal visual inspection and Yes supple Resp Effort & Inspection: normal respiratory effort Auscultation: clear to auscultation bilaterally Cardio Jugular venous distension: no JVD Rate: regular rate Rhythm: regular rhythm Heart sounds: S1 normal heart sound present and S2 normal heart sound present GI Inspection: Yes normal to inspection Palpation (GI): Soft to palpation and nontender Auscultation: normal bowel sounds Skin General skin exam: no rashes or lesions noted Neuro Other: Positive Tinel and Phalen test Extrem General: Yes full ROM Psych Appearance: grossly normal Office Procedures Flu Questionnaire Does the patient have a severe egg allergy?: No Immunizations Fluarix Triv [id number] (PF) 45 mcg (15 mcg x 3)/0.5 mL IM syringe Performing Provider: Rosamaria Khan MD [facility] [place] Documented (not given) by: KIKO Russell on 05/27/24 09:06 Reason Not Given: Patient Refused Coding Level of Care Code Est Pt Level 4 (87544) Est Pt Prev Care 40-64y(31268) Diagnoses Physical exam Z00.00 Left breast mass N63.20 Breast mass, right N63.10 Hand paresthesia R20.2 Migraine without aura and without status migrainosus, not intractable G43.009 Migraine type: without aura Status migrainosus presence: without status migrainosus Intractability: not intractable Additional Codes KATARZYNA-7 Assessment Billing - KATARZYNA-7 Assessment Tool: KATARZYNA-7 Assessment 81497 ([id number]) Time Spent (min) 35 Assessment & Plan Assessment & Plan (1) Physical exam: Code(s): Z00.00 - Encounter for general adult medical examination without abnormal findings Category: Medical Plan: Repeat in a year. (2) Left breast mass: Comment: At 12 o'clock, 1 o'clock and 3 o'clock Code(s): N63.20 - Unspecified lump in the left breast, unspecified quadrant Category: Medical Plan: Ultrasound ordered. (3) Breast mass, right: Comment: At 12 o'clock Code(s): N63.10 - Unspecified lump in the right breast, unspecified quadrant Category: Medical Plan: Ultrasound ordered. (4) Hand paresthesia: Code(s): R20.2 - Paresthesia of skin Category: Medical Plan: Nerve conduction study ordered. Referred to Ortho. (5) Migraines: Code(s): G43.909 - Migraine, unspecified, not intractable, without status migrainosus Category: Medical Qualifiers: Migraine type: without aura Status migrainosus presence: without status migrainosus Intractability: not intractable Qualified Code(s): G43.009 - Migraine without aura, not intractable, without status migrainosus Plan: Referred to neurology. Orders: Orders Influenza [id number] Immunization Today Z23 - Encounter for immunization US breast RT complete Today N63.10 - Unspecified lump in the right breast, unspecified quadrant NE nerve conduction velocity Today R20.2 - Paresthesia of skin US breast LT complete Today N63.20 - Unspecified lump in the left breast, unspecified quadrant MM diagnostic mammo BI Today N63.10 - Unspecified lump in the right breast, unspecified quadrant, N63.20 - Unspecified lump in the left breast, unspecified quadrant Referrals Neurology Referral G43.009 - Migraine without aura, not intractable, without status migrainosus Orthopedics Referral M79.642 - Pain in left hand Medications: Refilled sumatriptan succinate do not exceed 4 doses per 24 hrs 50 mg PO Q2-4H 30 days PRN 9 tabs 0RF migraine headache G43.009 - Migraine without aura, not intractable, without status migrainosus topiramate 25 mg PO BEDTIME 90 days 90 tabs 0RF G43.009 - Migraine without aura, not intractable, without status migrainosus ibuprofen 600 mg PO Q8H PRN 10 tabs 0RF pain cyclobenzaprine 10 mg PO TID 30 days PRN 90 tabs 1RF muscle spasm
[2024-05-27 09:00] VITALS: BP 136/82; BMI 28.3
== END 2024-05-27 09:24 | disposition home or self-care (01) ==
PROVIDERS: PCP Internal Medicine; Visit Provider Internal Medicine
DX: Z00.00 Encounter for general adult medical examination without abnormal findings (principal); N63.21 Unspecified lump in the left breast, upper outer quadrant; N63.12 Unspecified lump in the right breast, upper inner quadrant; N63.11 Unspecified lump in the right breast, upper outer quadrant; R20.2 Paresthesia of skin; G43.009 Migraine without aura, not intractable, without status migrainosus

== ENCOUNTER → 2024-05-27 08:54 | Outpatient (BNVA) | payer OTHER, SELFPAY | PROVIDERS: PCP Internal Medicine; Visit Provider Internal Medicine | DX: Z00.00 Encounter for general adult medical examination without abnormal findings (principal); N63.20 Unspecified lump in the left breast, unspecified quadrant; N63.10 Unspecified lump in the right breast, unspecified quadrant; R20.2 Paresthesia of skin; G43.009 Migraine without aura, not intractable, without status migrainosus | CPT/HCPCS: 90471; 96127; 99212; 99396 ==

== ENCOUNTER 2024-06-05 08:30 | Outpatient (REF) | payer OTHER, SELFPAY ==
--- NOTE | ~2024-06-05 | US_ITS ---
EXAMINATION: MM DIAGNOSTIC DIGITAL BREAST TOMOSYNTHESIS, BILATERAL CLINICAL INFORMATION: Patient had injections at outside institution in November. Patient came with palpable breast lumps in March 2024 which were determined to be fat necrosis from previous injections. Patient has bilateral palpable lumps today for which diagnostic mammogram and ultrasound will be performed. COMPARISON: Mammography: Comparison is made with relevant prior exams. TECHNIQUE: Digital breast mammography with tomosynthesis is performed in both the craniocaudal and mediolateral oblique views along with computer-aided detection (CAD). Bilateral ultrasound. FINDINGS: The breasts are heterogeneously dense, which may obscure small masses (ACR BI-RADS breast composition Category c). Left: Areas of early rim calcifying areas affected closest with internal fat density in the upper central upper outer breast consistent with evolving fat necrosis from fat injections. There are no significant masses, abnormal calcifications, or other abnormalities. Targeted ultrasound in the left breast demonstrates multiple areas of probable evolving fat necrosis: At 7:00 4 cm from the nipple hypoechoic to isoechoic oval solid mass probable area of developing fat necrosis decreased in size from prior measuring 17 x 12 x 11 mm. 9:00 33 cm from the nipple a hypoechoic oval solid mass area of probable developing fat necrosis measuring 11 x 11 x 8 mm decrease in size from prior ultrasound. A 9:00 7 cm from nipple an oval hypoechoic mass area of probable fat necrosis measuring 15 x 7 x 5 mm. At 11:00 7 cm from the nipple an oval hypoechoic mass area of probable fat necrosis measuring 20 x 13 x 24 mm decreased in size from prior ultrasound. At 12:00 recent admission nipple a 16 x 15 x 24 mm oval hypoechoic mass area of probable fat necrosis. At 3:00 3 cm from nipple a hypoechoic oval mass/area of probable fat necrosis measuring 20 x 17 x 19 mm At 5:00 3 cm from nipple a hypoechoic oval mass measuring 22 x 29 x 18 mm area of probable fat necrosis. Right: Status post fat injection changes with rim calcified areas of developing fat necrosis under the areas of the patient palpable lumps in the upper central breast and lower inner breast. No suspicious masses calcifications or other abnormal findings. Targeted color Doppler ultrasound in the right breast again demonstrates a hypoechoic oval solid mass/area of probable fat necrosis at 12:00 3 cm from the nipple measuring 32 x 23 x 22 mm no change from prior ultrasound. At 4:00 3 cm from the nipple another hypoechoic oval solid mass measuring 18 x 15 x 25 mm area of probable fat necrosis. Results are provided to the patient at time of visit by the technologist. US/US breast BI limited mamm only IMPRESSION: Areas of bilateral developing fat necrosis consistent with patient's history of fat injections in November 2023. Some of the areas of fat necrosis or decreased in size and therefore benign. Lung mass is stable from prior right breast 12:00 recent admission nipple. Recommend 6 month follow-up bilateral ultrasound for further evaluation of evolution of fat necrosis and stability. ASSESSMENT: BI-RADS BI-RADS 3 - Probably benign finding(s) - 6 month follow-up suggested RECOMMENDATION: 6 Month F/U This patient's information was entered into a reminder system with a target due date for their next mammogram. Electronically signed by: Amanda Dang DO 06/05/2024 09:59 AM EDT
== END 2024-06-05 08:31 | disposition home or self-care (01) ==
LOC: HO.MAMMO 08:30
PROVIDERS: PCP Internal Medicine; Visit Provider Internal Medicine
DX: N63.15 Unspecified lump in the right breast, overlapping quadrants (principal); N63.25 Unspecified lump in the left breast, overlapping quadrants; N63.21 Unspecified lump in the left breast, upper outer quadrant; Z98.890 Other specified postprocedural states
CPT/HCPCS: 76642; 77062; 77066

== ENCOUNTER → 2024-06-05 09:15 | Outpatient (BNV) | payer OTHER, SELFPAY | PROVIDERS: PCP Internal Medicine; Visit Provider Internal Medicine | DX: N63.24 Unspecified lump in the left breast, lower inner quadrant (principal); N63.23 Unspecified lump in the left breast, lower outer quadrant; N63.25 Unspecified lump in the left breast, overlapping quadrants; N64.1 Fat necrosis of breast | CPT/HCPCS: 76642; 77062; 77066 ==

== ENCOUNTER 2024-06-08 10:05 | Outpatient (AMB) | payer OTHER, SELFPAY ==
--- NOTE | 2024-06-08 10:09 | A.OFFVIS_ITS ---
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 Patient reports pain and swelling in her left wrist and fingers, she says she noticed her veins popping out when she has swelling and she can feel small lumps on her volar wrist. Pain is also localized at base of her thumb with reports of pins and needles feeling. She states difficulty with flexion, driving, gripping, grasping, and lifting objects. She has dropped objects in the past before because of her symptoms. Her daily activities have become difficult for her due to her symptoms. At night she wears a brace due to her symptoms exacerbating which helps her sleep a little better. She said she has tried therapy in the past and found no relief. Tylenol and ibuprofen offer mild relief. She mentioned she is having similar symptoms in the right hand as well however left is worse now. Denies recent injury. 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 The patient states that over this time, she has noticed the pain as well as the numbness and tingling have gotten worse over that time. Patient states that her pain is primarily located at the base of the left thumb, and extends into the forearm and the palm. The patient states that the numbness and tingling in her hand primarily affects the thumb, index, and middle fingers, and is intermittent but daily, and worse at night. The patient states that she does have an appoi ntment for an EMG and nerve conduction study on June 16. No other acute complaints or concerns at this time. [facility] Medical History (Updated 06/08/24 @ 12:59 by LAKHWINDER Flower) Overweight (BMI 25.0-29.9) Migraines Surgical History (Updated 05/27/24 @ 09:30 by Rosamaria Khan MD) H/O breast augmentation H/O abdominoplasty History of kidney surgery Tubal ligation status H/O LEEP Family History Father Heart problem Hypertension Mother Hypertension Parkinson disease Maternal Grandmother Diabetes Hypertension Family/Other FH: mental illness Social History (Updated 06/08/24 @ 10:12 by ESME De Jesus) Housing: House Alcohol intake: current Alcohol intake frequency: holidays/special occasions only Alcohol type: hard liquor Patient Tobacco Use Status: Former Tobacco user Tobacco use type: Cigarette e-Cigarette/Vaping Use: Never Used Second Hand Smoke Exposure: No service: No Current occupational status: unemployed Current occupation: right hand dominant Cognitive needs: No Hearing needs: No Vision needs: Yes Review of Systems Const All systems reviewed & are unremarkable except as noted in HPI and below Physical Exam Vital Signs: BMI result Body Mass Index 29.0 Extrem Other: Neuro: Normal sensation of the tips of all digits of the left hand at this time Normal sensation in the tips of all digits of the right hand today. No thenar or intrinsic wasting. Good APB muscle firing and good finger cross. Vascular: Capillary refill brisk. Pain: Tenderness to palpation of the left radial styloid No tenderness to palpation of the DRUJ, ulnar styloid, or elsewhere in the left wrist ROM: Patient can make a fist and extend all their digits. Skin: No lacerations or abrasions noted. General: No ecchymosis. No erythema or evidence of infection. Positive [facility] Results Reviewed Results Reviewed: X-rays obtained in the office today and independently reviewed by me, Jarrod Cummings PA-C, demonstrate no fracture or acute bony abnormality of the left hand or wrist. Of note, there is no arthritic change noted in the basal joint of the left thumb. Assessment & Plan Assessment & Plan (1) De Quervain's tenosynovitis, left: Code(s): M65.4 - Radial styloid tenosynovitis [de Quervain] Category: Medical (2) Numbness and tingling of left hand: Code(s): R20.0 - Anesthesia of skin; R20.2 - Paresthesia of skin Category: Medical Plan 1. Numbness and tingling of left hand Symptoms intermittent, daily, worse at night Patient is informed we need to get the results of her previously scheduled EMG and nerve conduction study prior to discussion of further treatment options Patient understands this and is amenable to this plan Patient will follow-up after her EMG and nerve conduction study for results review and discussion of further treatment options, sooner with any acute concerns 2. De Quervain tenosynovitis, left I educated the patient about this condition I educated the patient about the treatment options available, namely conservative management with bracing and OT, and steroid injection Patient would like to proceed with conservative management at this time Patient was provided with comfort cool thumb spica brace and is referred to occupational therapy for range of motion and strengthening of the left wrist in the setting of de Quervain tenosynovitis Patient understands this and is amenable to this plan If 6-8 weeks after starting ENT, the patient notices no relief of her symptoms, she can call for re-evaluation and discussion of further treatment options at that time Orders: Orders NE nerve conduction velocity Today R20.0 - Anesthesia of skin, R20.2 - Paresthesia of skin OT Evaluation and Treatment Today M65.4 - Radial styloid tenosynovitis [de Quervain] NE electromyogram (EMG) Today R20.0 - Anesthesia of skin, R20.2 - Paresthesia of skin XR hand LT min 3V Today M79.642 - Pain in left hand Coding Level of Care Code New Pt Level 3 (85966) Diagnoses De Quervain's tenosynovitis, left M65.4 Numbness and tingling of left hand R20.0; R20.2
[2024-06-08 10:11] VITALS: BMI 29.0
== END 2024-06-08 11:18 | disposition home or self-care (01) ==
PROVIDERS: PCP Internal Medicine
DX: M65.4 Radial styloid tenosynovitis [de Quervain] (principal); R20.0 Anesthesia of skin; R20.2 Paresthesia of skin
CPT/HCPCS: 99203

== ENCOUNTER 2024-06-08 10:05 | Outpatient (REF) | payer OTHER, SELFPAY ==
--- NOTE | ~2024-06-08 | XR_ITS ---
EXAMINATION: XR HAND LEFT 3 VIEWS CLINICAL INFORMATION: Pain in left hand M79.642. COMPARISON: XR Left hand 09/03/2019 TECHNIQUE: PA, lateral, and oblique views of the left hand. FINDINGS: The bones and soft tissues are normal. No fracture. Alignment is anatomic. Joint spaces are maintained. No erosions or soft tissue calcifications. XR/XR hand LT min 3V IMPRESSION: Normal left hand. Electronically signed by: Donny Valladares MD 08/04/2024 11:08 AM EST
== END 2024-06-08 10:06 | disposition home or self-care (01) ==
LOC: HO.HOSX 10:05
PROVIDERS: PCP Internal Medicine
DX: M79.642 Pain in left hand (principal); M65.4 Radial styloid tenosynovitis [de Quervain]; R20.0 Anesthesia of skin; R20.2 Paresthesia of skin
CPT/HCPCS: 73130; 99202

== ENCOUNTER 2024-06-19 14:08 | Outpatient (REF) | payer OTHER, SELFPAY ==
--- NOTE | 2024-06-19 14:14 | EMG_ITS ---
Chief complaint: Left hand pain and numbness Reason for referral: Evaluate for Carpal Tunnel Syndrome Referred by: Jarrod KEANE Procedure done: Left upper extremity NCS/EMG Precautions and/or limitations: None The limb temperature was monitored continuously and remained between 32-36 degrees C during the performance of the NCS. Nerve Conduction Studies Anti Sensory Summary Table ?Stim Site NR Onset (ms) Norm Onset (ms) Peak (ms) Norm Peak (ms) O-P Amp (?V) Norm O-P Amp Site1 Site2 Delta-0 (ms) Dist (cm) Edwin (m/s) Norm Edwin (m/s) Left Median Anti Sensory (2nd Digit) Wrist ? 2.3 3.3 <3.6 41.5 >10 Wrist 2nd Digit 2.3 14.0 61 Left Ulnar Anti Sensory (5th Digit) Wrist ? 1.9 2.7 <3.7 52.0 >15.0 Wrist 5th Digit 1.9 14.0 74 Motor Summary Table ?Stim Site NR Onset (ms) Norm Onset (ms) O-P Amp (mV) Norm O-P Amp iAmp (mV) Amp (1st) (%) Site1 Site2 Delta-0 (ms) Dist (cm) Edwin (m/s) Norm Edwin (m/s) Left Median Motor (Abd Poll Brev) Wrist ? 3.1 <3.9 13.0 >4.5 14.9 100.0 Elbow Wrist 4.0 21.5 54 >45 Elbow ? 7.1 13.6 15.7 104.6 Left Ulnar Motor (Abd Dig Minimi) Wrist ? 2.5 <3.0 9.8 >5 12.0 100.0 B Elbow Wrist 3.4 20.5 60 >45 B Elbow ? 5.9 8.0 10.9 81.6 A Elbow B Elbow 1.2 10.0 83 >45 A Elbow ? 7.1 7.3 10.7 74.5 Comparison Summary Table ?Stim Site NR Peak (ms) Norm Peak (ms) P-T Amp (?V) Site1 Site2 Delta-P (ms) Norm Delta (ms) Left Median/Radial Dig I Comparison (Digit 1 - 10cm) Median ? 2.9 <2.9 88.5 Median Radial -0.2 Radial ? 3.1 <2.8 111.4 EMG ?Side Muscle Nerve Root Ins Act Fibs Psw Amp Dur Poly Recrt Int Pat Comment Left 1stDorInt Ulnar C8-T1 Nml Nml Nml Nml Nml 0 Nml Complete Left FlexCarRad Median C6-7 Nml Nml Nml Nml Nml 0 Nml Complete Left Biceps Musculocut C5-6 Nml Nml Nml Nml Nml 0 Nml Complete Left Triceps Radial C6-7-8 Nml Nml Nml Nml Nml 0 Nml Complete Left Deltoid Axillary C5-6 Nml Nml Nml Nml Nml 0 Nml Complete FINDINGS: All motor and sensory nerves tested showed normal latencies, amplitudes and conduction velocities. Concentric needle EMG was performed in selected muscles of the left upper extremity. Study did not reveal signs of electric abnormalities as shown in the table above. IMPRESSION: 1. This is a normal study. 2. There is no electrodiagnostic evidence for median neuropathy, ulnar neuropathy, brachial plexopathy, or cervical radiculopathy. Thank you for your kind referral. Saundra Gibson MD, KAMINI Board Certified, [place] Board [employer] Medicine and Rehabilitation (ABPMR) Board Certified, [place] Board of Electrodiagnostic Medicine (ABEM) CODIN [address] MTDD
== END 2024-06-19 14:09 | disposition home or self-care (01) ==
LOC: HO.NEURO 14:08
PROVIDERS: PCP Internal Medicine; Visit Provider Internal Medicine
DX: R20.0 Anesthesia of skin (principal); R20.2 Paresthesia of skin
CPT/HCPCS: 95886; 95909

== ENCOUNTER → 2024-06-19 14:14 | Outpatient (BNV) | payer OTHER, SELFPAY | PROVIDERS: PCP Internal Medicine; Visit Provider Physical Medicine & Rehabilitation | DX: R20.0 Anesthesia of skin (principal); R20.2 Paresthesia of skin; M79.642 Pain in left hand | CPT/HCPCS: 95886; 95909 ==

== ENCOUNTER 2024-07-01 13:23 | Outpatient (AMB) | payer OTHER, SELFPAY ==
--- NOTE | 2024-07-01 13:34 | A.OFFVIS_ITS ---
Intake Visit Reasons: OV- Left hand EMG review Intake Note: Froilan is a 43 year old right hand dominant female who presents today for an EMG review of her left hand. EMG was done on 06/19/2024. 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 The patient states that the pain at the base of her left thumb has completely resolved, but she is now experiencing pain in the radial aspect of the left wrist. The patient reports that the numbness and tingling in her left hand has gotten better. No other acute complaints or concerns at this time. [facility] Medical History (Updated 07/01/24 @ 15:04 by LAKHWINDER Flower) Overweight (BMI 25.0-29.9) Migraines Surgical History (Updated 05/27/24 @ 09:30 by Rosamaria Khan MD) H/O breast augmentation H/O abdominoplasty History of kidney surgery Tubal ligation status H/O LEEP Family History Father Heart problem Hypertension Mother Hypertension Parkinson disease Maternal Grandmother Diabetes Hypertension Family/Other FH: mental illness Social History (Updated 06/08/24 @ 10:12 by ESME De Jesus) Housing: House Alcohol intake: current Alcohol intake frequency: holidays/special occasions only Alcohol type: hard liquor Patient Tobacco Use Status: Former Tobacco user Tobacco use type: Cigarette e-Cigarette/Vaping Use: Never Used Second Hand Smoke Exposure: No service: No Current occupational status: unemployed Current occupation: right hand dominant Cognitive needs: No Hearing needs: No Vision needs: Yes Review of Systems Const All systems reviewed & are unremarkable except as noted in HPI and below Physical Exam Extrem Other: Neuro: Normal sensation of the tips of all digits of the left hand at this time Normal sensation in the tips of all digits of the right hand today. No thenar or intrinsic wasting. Good APB muscle firing and good finger cross. Vascular: Capillary refill brisk. Pain: No Tenderness to palpation of the left radial styloid Patient does report discomfort with flexion and extension in the radial aspect of the volar left wrist No tenderness to palpation of the DRUJ, ulnar styloid, or elsewhere in the left wrist ROM: Patient can make a fist and extend all their digits. Skin: No lacerations or abrasions noted. General: No ecchymosis. No erythema or evidence of infection. Negative Sandy in the left Pain with resisted flexion of the left wrist over the FCR tendon Assessment & Plan Assessment & Plan (1) Numbness and tingling of left hand: Code(s): R20.0 - Anesthesia of skin; R20.2 - Paresthesia of skin Category: Medical (2) Flexor carpi radialis tendinitis: Code(s): M77.8 - Other enthesopathies, not elsewhere classified Category: Medical Plan 1. FCR tendinitis of left wrist Patient is educated about this condition and the typical recovery course At this time, patient was referred to occupational therapy for range of motion and strengthening of the left wrist in the setting of FCR tendinitis Patient has symptoms consistent with de Quervain tenosynovitis appear to have resolved since last evaluation Patient is also provided with a Velcro wrist splint to be worn with daytime activities and when the left wrist is particularly bothering her Patient was amenable to this plan 2. Numbness and tingling of left wrist Negative EMG Patient reports that her symptoms have improved since last visit Patient is educated that if the numbness and tingling does continue to bother her in 6 months, we can order a repeat EMG at that time Patient was amenable to this plan Patient will follow-up as needed with any acute concerns Coding Level of Care Code Est Pt Level 3 (36881) Diagnoses Numbness and tingling of left hand R20.0; R20.2 Flexor carpi radialis tendinitis M77.8
== END 2024-07-01 14:04 | disposition home or self-care (01) ==
PROVIDERS: PCP Internal Medicine
DX: R20.0 Anesthesia of skin (principal); R20.2 Paresthesia of skin; M77.8 Other enthesopathies, not elsewhere classified
CPT/HCPCS: 99213

== ENCOUNTER → 2024-07-01 13:23 | Outpatient (BNVA) | payer OTHER, SELFPAY | PROVIDERS: PCP Internal Medicine | DX: R20.0 Anesthesia of skin (principal); R20.2 Paresthesia of skin; M77.8 Other enthesopathies, not elsewhere classified | CPT/HCPCS: 99212 ==

== ENCOUNTER 2024-10-01 15:12 | Outpatient (AMB) | payer OTHER, SELFPAY ==
--- NOTE | 2024-10-01 15:15 | A.OFFVIS_ITS ---
Vital Signs 10/01/24 15:23 Height 5 ft 8 in Weight 194 lb BMI 29.5 BP 150/66 H Blood Pressure Location Lt brachial Position Sitting Pulse 73 Intake Visit Reasons: Bilateral breast lumps Intake Note: Patient is seen in office for evaluation of bilateral breast lumps. 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 She reports undergoing an abdominoplasty followed by bilateral breast augmentation using the abdominal fat pad for augmentation. This was performed in [place] in 11/30/2023. The patient tolerated the procedure well and denied any initial problems however more recently she began to note bilateral breast pain with palpable lumps. The pain is felt worse with arm elevation especially in the lower inner quadrant of both breasts. The lump seemed to be more prominent now than previously noted. She subsequently underwent a mammogram and ultrasound performed on 06/05/2024 at the [facility]. This revealed multiple areas of probable evolving fat necrosis including in the left breast at the 07:00 o'clock, 09:00 o'clock, 11:00 o'clock, 12:00 o'clock, 03:00 o'clock and 05:00 o'clock location. In the right breast similar lesions are identified in the 12:00 o'clock and 04:00 o'clock location. All regions were felt to be probably benign related to the previous surgery. No suspicious findings were identified. [facility] Medical History Overweight (BMI 25.0-29.9) Migraines Surgical History H/O breast augmentation H/O abdominoplasty History of kidney surgery Tubal ligation status H/O LEEP Family History Father Heart problem Hypertension Mother Hypertension Parkinson disease Maternal Grandmother Diabetes Hypertension Family/Other FH: mental illness Social History Housing: House Alcohol intake: current Alcohol intake frequency: holidays/special occasions only Alcohol type: hard liquor Patient Tobacco Use Status: Former Tobacco user Tobacco use type: Cigarette e-Cigarette/Vaping Use: Never Used Second Hand Smoke Exposure: No service: No Current occupational status: unemployed Current occupation: right hand dominant Cognitive needs: No Hearing needs: No Vision needs: Yes Review of Systems Const All systems reviewed & are unremarkable except as noted in HPI and below Denies chills, Denies fever(s), Denies headache(s), Denies poor appetite and Denies weakness ENT Denies headache(s) Card Denies chest pain, Denies irregular heart rhythm, Denies palpitations and Denies dyspnea Resp Denies cough, Denies excessive phlegm production and Denies dyspnea GI Denies abdominal pain, Denies bloating, Denies change in bowel habits, Denies constipation, Denies heartburn, Denies diarrhea, Denies nausea and Denies vomiting Denies urinary frequency Musc Denies back pain, Denies muscle weakness and Denies numbness Skin/Breast Denies changing lesions and Denies unusual bruising Neuro Denies headache(s), Denies numbness, Denies paresthesias and Denies weakness Psych Denies anxiety and Denies depression Endo Denies palpitations Dawood/Lymph Denies lymphadenopathy Physical Exam Const General: cooperative and no acute distress Nutritional Appearance: well nourished Orientation/consciousness: patient oriented x3 Limitations: no limitations HEENT Head: Yes normocephalic and Yes atraumatic Ears: hearing grossly normal bilaterally Chest Other: Bilateral breasts exam reveals multiple palpable breast lesions corresponding to the mammographic and ultrasound findings. All lesions are circular, mobile and non fluctuant. Tenderness is noted in the right breast at the lower inner quadrant corresponding to lesion at the 04:00 o'clock location by ultrasound. No suspicious lesions are noted to examination on either breast. Resp Effort & Inspection: normal respiratory effort, no audible wheezes, no cough and no respiratory distress Cardio Jugular venous distension: no JVD GI Inspection: Yes normal to inspection Skin Other: Warm, dry, no rash Neuro General: patient oriented x3 Extrem General: Yes no clubbing, cyanosis or edema Assessment & Plan Assessment & Plan (1) Breast mass, right: Comment: At 12 o'clock Code(s): N63.10 - Unspecified lump in the right breast, unspecified quadrant Category: Medical Qualifiers: Breast mass location: overlapping quadrants Qualified Code(s): N63.15 - Unspecified lump in the right breast, overlapping quadrants (2) Left breast mass: Comment: At 12 o'clock, 1 o'clock and 3 o'clock Code(s): N63.20 - Unspecified lump in the left breast, unspecified quadrant Category: Medical Qualifiers: Breast mass location: overlapping quadrants Qualified Code(s): N63.25 - Unspecified lump in the left breast, overlapping quadrants (3) H/O breast augmentation: Comment: 60116. Done with her own fatty tissue. Code(s): Z98.82 - Breast implant status Category: Surgical Plan 43-year-old female patient with a prior abdominoplasty with fat transfer for breast augmentation in both breasts performed in [place] in 11/30/2023. Workup reveals no suspicious findings in either breast but on examination there are multiple breast lumps consistent with fat necrosis from her prior surgery. There are no suspicious lesions or fluid collections to be removed and I feel this would best be managed by Plastic surgery either possibly with reconstruction. The patient expressed understanding and is requesting referral to [facility] plastic surgery. She should follow up with our office as needed. Orders: Referrals Plastic Surgery Referral N63.10 - Unspecified lump in the right breast, unspecified quadrant, N63.20 - Unspecified lump in the left breast, unspecified quadrant, Z98.82 - Breast implant status Coding Level of Care Code New Pt Level 4 (93073) Diagnoses Mass overlapping multiple quadrants of right breast N63.15 Breast mass location: overlapping quadrants Mass overlapping multiple quadrants of left breast N63.25 Breast mass location: overlapping quadrants H/O breast augmentation Z98.82
[2024-10-01 15:23] VITALS: BP 150/66; PULSE 73; BMI 29.5
--- OUTSIDE RECORDS SUMMARY | 2024-10-01 16:13 | XMS_ITS | Clinical Summary ---
Author Organization [facility] Address [id number] [place] [id number] Care Team Providers Care Ob/Gyn Name Role Phone Rosamaria Khan MD Primary Care Provider [phone] Surgical History Surgery Date Site/Laterality Comments TUBAL LIGATION PROCEDURE: HISTORICAL TUBAL LIGATION CERVICAL BIOPSY W/ LOOP ELECTRODE EXCISION 09/02/2017 PROCEDURE: HISTORICAL CONE BIOPSY; COMMENT: Cold knife biopsy Dr. Bolanos Medical History Medical History Date Comments Asthma DX:Asthma Family History Medical History Relation Name Comments No Known Problems Brother No Known Problems Father Arthritis Maternal Grandmother Diabetes Maternal Grandmother Hypertension Maternal Grandmother No Known Problems Mother No Known Problems Sister Basal cell carcinoma Neg Hx Breast cancer Neg Hx Cervical cancer Neg Hx Ovarian cancer Neg Hx Prostate cancer Neg Hx Relation Name Status Comments Brother Alive Father Alive Maternal Grandmother Mother Alive Sister Alive Social History Tobacco Use Types Packs/Day Years Used Date Smoking Tobacco: Former Cigarettes Q uit: 08/12/2019 Smokeless Tobacco: Never Alcohol Use Standard Drinks/Week Comments Yes 0 (1 standard drink = 0.6 oz pur e alcohol) Comments Unknown Sex and Gender Information Value Date Recorded Sex Assigned at Not on file Legal Sex Female 5:45 AM EST Gender Identity Not on file Sexual Orientation Not on file Obstetrics History Last Filed Vital Signs Vital Sign Reading Time Taken Comments Blood Pressure 112/64 03/28/2023 11:24 AM EDT Pulse 73 03/28/2023 11:24 AM EDT Temperature - - Respiratory Rate - - Oxygen Saturation - - Inhaled Oxygen Concentration - - Weight 86.6 kg (191 lb) 03/28/2023 11:24 AM EDT Height 172.7 cm (5' 8 ) 03/28/2023 11:24 AM EDT Body Mass Index 29.04 03/28/2023 11:24 AM EDT Plan of Treatment Health Maintenance Due Date Last Done Comments COVID-19 Vaccine (#1) 11/20/1987 DTaP,Tdap,and Td Vaccines (1 - Tdap) 2001 Hepatitis B Vaccines (1 of 3 - 19+ 3-dose series) 2001 Pneumococcal Vaccine: Pediatrics (0 to 5 Years) and At-Risk Patients (6 to 64 Years) (1 of 2 - PCV) 2001 Depression Screening 07/21/2022 HIV Screening 07/21/2022 Hepatitis C Screening 07/21/2022 Social Influencers of Health Screening 07/21/2022 Influenza Vaccine (#1) 2024 Breast Cancer Screening 04/11/2025 04/11/2023 Cervical Cancer Screening: Pap Smear 03/28/2026 03/28/2023, 01/28/2020, 09/10/2018, Additional history exists HIB Vaccines Aged Out No longer eligi ble based on patient's age to complete this topic HPV Vaccines Aged Out No longer eligi ble based on patient's age to complete this topic Hepatitis A Vaccines Aged Out No long er eligible based on patient's age to complete this topic IPV Vaccines Aged Out No longer eligi ble based on patient's age to complete this topic MMR Vaccines Aged Out No longer eligi ble based on patient's age to complete this topic Meningococcal ACWY Vaccine Aged Out N o longer eligible based on patient's age to complete this topic Meningococcal B Vacine Aged Out No lo nger eligible based on patient's age to complete this topic RSV Immunization Patients Under 20 months Aged Out No longer eligible based on patient's age to complete this topic Varicella Vaccines Aged Out No longer eligible based on patient's age to complete this topic Procedures Procedure Name Priority Date/Time Associated Diagnosis Comments SCREENING MAMMOGRAPHY BI 2-VIEW BREAST INC CAD Routine 04/11/2023 9:46 AM EDT Encounter for gynecological examination (general) (routine) without abnormal findings Encounter for other screening for malignant neoplasm of breast Other specified health status PAP SMEAR Routine 03/28/2023 from Last 3 Months or Most Recently Relevant to Health Maintenance Results * SCREENING MAMMOGRAPHY BI 2-VIEW BREAST INC CAD (04/11/2023 9:46 AM EDT) Anatomical Region Laterality Modality Radiographic Tiesha ging 03/28/2023 11:3 9 AM EDT Narrative 04/11/2023 4:58 PM EDT This is a summary report. The complete report is available in the patient's medical record. If you cannot access the medical record, please contact the sending organization for a detailed fax or copy. Exam: Screening mammogram Findings: Digital bilateral full-field screening mammography is performed with tomosynthesis and interpreted with the aid of computer-aided detection. ??Comparison is made with 10/17/2018. ?? Breast parenchyma is heterogeneously dense, limiting mammographic sensitivity. ??No new suspicious mass, architectural distortion, or suspicious calcifications. Impression: No mammographic evidence of malignancy. BI-RADS 1 - negative Procedure Note Tali Pino MD - 09/17/2023 This is a summary report. The complete report is available in thepatient's medical record. If you cannot access the medical record, pleasecontact the sending organization for a detailed fax or copy. Exam: Screening mammogram Findings: Digital bilateral full-field screening mammography is performedwith tomosynthesis and interpreted with the aid of computer-aideddetection. Comparison is made with 10/17/2018. Breast parenchyma is heterogeneously dense, limiting mammographicsensitivity. No new suspicious mass, architectural distortion, orsuspicious calcifications. Impression: No mammographic evidence of malignancy. BI-RADS 1 - negative [facility] IMG XR PROCEDURES Final Resul t * Pap smear (03/28/2023) 03/28/2023 Narrative HISTORICAL TESTING LAB RESULTING AGENCY - 04/08/2023 7:30 AM EDT [id number] THINPREP PAP: NEGATIVE FOR SQUAMOUS INTRAEPITHELIAL LESION AND MALIGNANCY . SHIFT IN JEANNE, SUGGESTIVE OF BACTERIAL VAGINOSIS. NOTE: ??THIS PAP TEST COULD NOT BE IMAGED UTILIZING THE IMAGING SYSTEM AND REQUIRED MANUAL REVIEW. SUPRIYA BRYAN , [place]([facility]) (CASE ELECTRONICALLY SIGNED 04 07 2023) RESULT OF APTIMA HIGH RISK HPV ASSAY: HIGH RISK HPV: ??NEGATIVE (SEROTYPES 16,18,31,33,35,39,45,51,52,56,58,59,66,68) COMPLETED ON 2023-04-01 ADEQUACY: SATISFACTORY ENDOCERVICAL/TRANSFORMATION ZONE COMPONENT ABSENT. SOURCE: THINPREP PAP HPV ANY DX: ??REFLEX 16 AND 18, CERVICAL CLINICAL INFORMATION: HPV ANY DIAGNOSIS. HORMONES, PAP HX NEG 2019, LMP 03/16/23, [Z01.419] [facility] CYTOLOGY ORDERABLES Final Result HISTORICAL TESTING LAB RESULTING AGENCY from Last 3 Months or Most Recently Relevant to Health Maintenance Care Teams Ob/Gyn Relationship Specialty Start Date End Date Rosamaria Khan MD [address] [place] [address] , [address] [facility] Physician Associ D/B/A: [facility] [place] PCP - General 01/14/23
== END 2024-10-01 15:41 | disposition home or self-care (01) ==
PROVIDERS: PCP Internal Medicine; Referring Provider Internal Medicine; Visit Provider Surgery
DX: N63.15 Unspecified lump in the right breast, overlapping quadrants (principal); N63.25 Unspecified lump in the left breast, overlapping quadrants; Z98.82 Breast implant status
CPT/HCPCS: 99204

== ENCOUNTER → 2024-10-01 15:12 | Outpatient (BNVA) | payer OTHER, SELFPAY | PROVIDERS: PCP Internal Medicine; Referring Provider Internal Medicine; Visit Provider Surgery | DX: N63.15 Unspecified lump in the right breast, overlapping quadrants (principal); N63.25 Unspecified lump in the left breast, overlapping quadrants; Z98.82 Breast implant status | CPT/HCPCS: 99202 ==

== ENCOUNTER → 2025-03-02 09:30 | Outpatient (BNV) | payer OTHER, SELFPAY | PROVIDERS: PCP Internal Medicine; Visit Provider Radiology Body Imaging | DX: N64.1 Fat necrosis of breast (principal); R92.333 Mammographic heterogeneous density, bilateral breasts | CPT/HCPCS: 76642; 77062; 77066 ==

== ENCOUNTER 2025-03-02 09:32 | Outpatient (REF) | payer OTHER, SELFPAY ==
--- NOTE | ~2025-03-02 | US_ITS ---
EXAMINATIONS: 1) MM DIAGNOSTIC DIGITAL BREAST TOMOSYNTHESIS, BILATERAL 2) US BREAST LIMITED BILATERAL CLINICAL INFORMATION: -History of fat injections in bilateral breasts in November 2023. -This is a 6-month follow-up of bilateral palpable masses, thought to represent evolving areas of fat necrosis. COMPARISON: Comparison made to multiple prior, most recent June 05, 2024, and most remote October 17, 2018. Prior bilateral ultrasound on June 05, 2024. TECHNIQUE: Digital breast tomosynthesis is performed in both the craniocaudal and mediolateral oblique views along with computer-aided detection (CAD). Synthesized 2D images are generated from the tomosynthesis. Skin BB marker was placed at the location that the patient feels there is a left mass that feels harder. FINDINGS: BREAST COMPOSITION: The breasts are heterogeneously dense, which may obscure small masses (ACR BI-RADS breast composition Category c). RIGHT BREAST: Status post fat injection changes with multiple areas of rim calcifications compatible with evolving fat necrosis, essentially unchanged from May 2024. No significant masses, suspicious calcifications or other abnormalities are seen. Targeted ultrasound of the right breast was performed at the location of previously described sonographic findings as follows: -12:00 at 3 cm from the nipple: Hypoechoic solid mass of probable fat necrosis measures 2.5 x 2.1 x 2.2 cm, decreased in size (previously 3.2 x 2.3 x 2.2 cm). -4:00 at 3 cm from the nipple. Previously seen mass could not be well seen on the current study. LEFT BREAST: -Status post fat injection changes with multiple areas of rim calcifications compatible with evolving fat necrosis, essentially unchanged from May 2024. - Focal asymmetry in the lower outer quadrant posterior depth is associated with multiple grouped small rim calcifications, compatible with evolving fat local necrosis. -No significant masses, suspicious calcifications or other abnormalities are seen. Targeted ultrasound of the left breast was performed at the location of the previously described sonographic findings and at the location of the mammographic finding associated with multiple small calcifications: -7:00 at 4 cm from the nipple: Hypoechoic to isoechoic solid mass probable area of developing fat necrosis, measures 1.0 x 0.8 x 1.0 cm, decreased in size (previously 1.7 x 1.2 x 1.1 cm). -9:00 at 3 cm from the nipple: Hypoechoic solid mass probable area of developing fat necrosis, measures 1.0 x 0.7 x 1.0 cm, similar to previous exam (previously 1.1 x 1.1 x 0.8 cm). -9:00 at 7 cm from the nipple: Hypoechoic solid mass probable area of developing fat necrosis, measures 0.3 x 0.2 x 0.3 cm, decreased in size (previously 0.7 x 0.7 x 0.5 cm). -11:00 at 7 cm from the nipple: Hypoechoic solid mass probable fat necrosis, measures 1.4 x 0.9 x 1.1 cm, decreased in size (previously 2.0 x 1.3 x 2.4 cm). -12:00 at 3 cm from the nipple: Hypoechoic solid mass probable fat necrosis, measures 1.9 x 1.6 x 1.4 cm, decreased in size (previously 2.4 x 1.6 x 1.5 cm). -3:00 at 3 cm from the nipple: Hypoechoic solid mass probable fat necrosis, measures 1.9 x 1.6 x 1.7 cm, similar to previous exam (previously 2.0 x 1.7 x 1.9 cm). -5:00 at 3 cm from the nipple: Hypoechoic solid mass bubble fat necrosis measures 2.1 x 1.5 x 1.9 cm, decreased in size (previously 2.9 x 1.8 x 2.2 cm). -4:00 at 7 cm from the nipple: Ill-defined hypoechoic area that correlates with the mammographic finding associated with multiple small grouped rim calcifications. US/US breast BI limited mamm only IMPRESSION: RIGHT BREAST: Multiple areas of developing fat necrosis consistent with patient's history of fat injections in November 2023. Sonographically evaluated fat necrosis have decreased in size or no longer identified and can be considered benign findings. Benign, no mammographic evidence of malignancy. Normal interval follow-up is recommended in 12 months. LEFT BREAST: -Multiple areas of developing fat necrosis consistent with patient's history of fat injections in November 2023. -Sonographically evaluated probable areas of fat necrosis located at 9 o'clock position 3 cm from the nipple and at 3 o'clock position 3 cm from the nipple are stable in size from May 2024; probably benign. A 6-month follow-up ultrasound is recommended. -Sonographically evaluated probable area of fat necrosis located at 4 o'clock position 7 cm from the nipple, correlating with the mammographic finding associated with grouped small rim calcifications; probably benign. A 6-month follow-up mammogram and ultrasound is recommended. -Sonographically evaluated additional probable areas of fat necrosis are decreasing in size from May 2024. They can be considered benign findings at this point, and no dedicated imaging follow-up needed. ASSESSMENT: BI-RADS BI-RADS 3 - Probably benign finding(s) - 6 month follow-up suggested RECOMMENDATION: 6 Month F/U Results were provided to the patient at time of visit by the technologist. This patient's information was entered into a reminder system with a target due date for their next mammogram. Electronically signed by: Kurt Kc MD 03/02/2025 03:38 PM EDT
--- OUTSIDE RECORDS SUMMARY | 2025-03-02 10:10 | XMS_ITS | Clinical Summary ---
Author Organization [facility] Address [address] [place] [id number] Care Team Providers Care Joint Cutter Machine Name Role Phone Rosamaria Khan MD Primary Care Provider [phone] Surgical History Surgery Date Site/Laterality Comments TUBAL [...] 5 Years) and At-Risk Patients (6 to 49 Years) (1 of 2 - PCV) 2001 HIV Screening 07/21/2022 Hepatitis C Screening 07/21/2022 Social Influencers of Health Screening 07/21/2022 Depression Screening 08/12/2024 Breast Cancer Screening 04/11/2025 04/11/2023 Influenza Vaccine (#1) 2025 Cervical Cancer Screening: Pap Smear 03/28/2026 03/28/2023, [...] age to complete this topic Meningococcal B Vaccine Aged Out No l onger eligible based on patient's age to complete [...] interpreted with the aid of computer-aided detection. Comparison is made with 10/17/2018. Breast parenchyma is heterogeneously dense, limiting mammographic sensitivity. No new suspicious mass, architectural distortion, or suspicious [...] of malignancy. BI-RADS 1 - negative [facility] IMG XR PROCEDURES Final Resul t * Pap smear (03/28/2023) 03/28/2023 Narrative HISTORICAL TESTING LAB RESULTING AGENCY - 04/08/2023 7:30 AM EDT [id number] THINPREP PAP: NEGATIVE FOR SQUAMOUS INTRAEPITHELIAL LESION AND MALIGNANCY . SHIFT IN JEANNE, SUGGESTIVE OF BACTERIAL VAGINOSIS. NOTE: THIS PAP TEST COULD NOT BE IMAGED UTILIZING THE IMAGING SYSTEM AND REQUIRED MANUAL REVIEW. SUPRIYA BRYAN , CT([facility]) (CASE ELECTRONICALLY SIGNED 04 07 2023) RESULT OF APTIMA HIGH RISK HPV ASSAY: HIGH RISK HPV: NEGATIVE (SEROTYPES 16,18,31,33,35,39,45,51,52,56,58,59,66,68) COMPLETED ON 2023-04-01 ADEQUACY: SATISFACTORY ENDOCERVICAL/TRANSFORMATION ZONE COMPONENT ABSENT. SOURCE: THINPREP PAP HPV ANY DX: REFLEX 16 AND 18, CERVICAL CLINICAL INFORMATION: HPV ANY DIAGNOSIS. HORMONES, PAP HX NEG 2019, LMP 03/16/23, [[id number]] [facility] CYTOLOGY ORDERABLES Final Result HISTORICAL TESTING LAB RESULTING AGENCY from Last 3 Months or Most Recently Relevant to Health Maintenance Care Teams Joint Cutter Machine Relationship Specialty Start Date End Date Rosamaria Khan MD [address] [place] [address] , [address] [facility] Physician Associ D/B/A: [facility] [place] PCP - General 01/14/23
== END 2025-03-02 09:33 | disposition home or self-care (01) ==
LOC: HO.MAMMO 09:32
PROVIDERS: PCP Internal Medicine; Visit Provider Internal Medicine
DX: N63.15 Unspecified lump in the right breast, overlapping quadrants (principal); N63.25 Unspecified lump in the left breast, overlapping quadrants
CPT/HCPCS: 76642; 77062; 77066

== ENCOUNTER 2025-06-09 13:27 | Outpatient (AMB) | payer OTHER, SELFPAY ==
[2025-06-09 13:31] VITALS: BP 132/80; PULSE 70; O2SAT 98; BMI 29.8
--- NOTE | 2025-06-09 13:31 | A.OFFPC_ITS ---
Vital Signs 06/09/25 13:31 Height 5 ft 8 in Weight 196 lb 2 oz BMI 29.8 BP 132/80 Blood Pressure Location Lt brachial Position Sitting Pulse 70 Pulse Source Pulse Oximeter Pulse Oximetry (%) 98 Oxygen Delivery Method Room Air Intake Visit Reasons: annual exam Barrel Waterer Required: No Accompanied by: Self / Same As Patient Allergies No Known Allergies (No Known Allergies*) Allergy (Verified 06/09/25 14:14) Medication List - Last Reconciled 06/09/25 by Rosamaria Khan MD cyclobenzaprine 10 mg PO TID PRN 30 days ibuprofen 600 mg PO Q8H PRN lidocaine 5% 1 patch topical DAILY sumatriptan succinate 50 mg PO Q2-4H PRN 30 days topiramate 25 mg PO BEDTIME 90 days Tobacco use date assessed: 06/09/25 Dental Screening Dental Screen Date: 06/09/25 Did you have a dental visit in the last 12 months?: Yes Did you have a dental problem in the last 6 months where you did not have access to dental care?: No Was dental information given to patient?: Patient has dentist HPI HPI Comments History of Present Illness Details The patient is a 44-year-old female presenting for an annual physical examination. 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 She is undergoing evaluations every six months to monitor the condition and rule out cancer, with the last assessment in January. Her past surgical history is significant for breast augmentation, abdominoplasty, and kidney surgery. She has a history of migraines, for which she takes Sumatriptan and Topamax. Her other medications include Flexeril, ibuprofen, and lidocaine patches, though she has not refilled the patches recently. Her last tetanus vaccine was approximately 22 years ago. Both of her parents are alive. She is a former smoker and denies current use of alcohol. [facility] Medical History Overweight (BMI 25.0-29.9) Migraines Surgical History H/O breast augmentation H/O abdominoplasty History of kidney surgery Tubal ligation status H/O LEEP Family History Father Heart problem Hypertension Mother Hypertension Parkinson disease Maternal Grandmother Diabetes Hypertension Family/Other FH: mental illness Social History Housing: House Alcohol intake: current Alcohol intake frequency: holidays/special occasions only Alcohol type: hard liquor Patient Tobacco Use Status: Former Tobacco user Tobacco use type: Cigarette e-Cigarette/Vaping Use: Never Used Second Hand Smoke Exposure: No service: No Current occupational status: unemployed Current occupation: right hand dominant Cognitive needs: No Hearing needs: No Vision needs: Yes Questionnaire PHQ-9 Over the last 2 weeks, how often have you been bothered by any of the following problems? 1. Little interest or pleasure in doing things: not at all 2. Feeling down, depressed, or hopeless: not at all 3. Trouble falling or staying asleep, or sleeping too much: not at all 4. Feeling tired or having little energy: several days 5. Poor appetite or overeating: not at all 6. Feeling bad about yourself - or that you are a failure or have let yourself or your family down: not at all 7. Trouble concentrating on things, such as reading the newspaper or watching television: not at all 8. Moving or speaking so slowly that other people could have noticed. Or the opposite - being so fidgety or restless that you have been moving around a lot more than usual: not at all 9. Thoughts that you would be better off or of hurting yourself in some way: not at all Total score: 1 Depression Screening Interpretation: Negative Depression Screening Done: Yes 03311 - PHQ-9 Billing: Yes Source: Developed by Drs. Asaf Adler, Rosa Elena Locke, James Mendez and colleagues, with an educational veronica from [employer]. Thrive Questionnaire Date Thrive assessed: 06/09/25 I am a: Patient What is your living situation today?: I have a steady place to live Within the past 12 months, did the food you bought not last and you didn't have the money to get more?: Often true Within the past 12 months, did you worry whether your food would run out before you got money to buy more?: Often true Do you have trouble paying for medicines?: No Do you have trouble getting transportation to medical appointments?: No Do you have trouble paying your heating and electricity bill?: No Do you have trouble taking care of your child, family member or friend?: No Do you have trouble with day-to-day activities such as bathing, preparing meals, shopping, managing finances, etc.?: No Are you currently unemployed and looking for a job?: No Are you interested in more education?: No Please select the resources that you would like help with: None Currently or been in a relationship where the following occur: No concerns reported THRIVE Score: 2 AUDIT C Alcohol Use Questionnaire (AUDIT-C) 1. How often do you have a drink containing alcohol?: Never 3. How often do you have six or more drinks on one occasion?: Never Total Score: 0 Score Reviewed/Action Taken: No KATARZYNA-7 AMB Questionnaire KATARZYNA-7 Date KATARZYNA - 7 assessed: 06/09/25 Feeling nervous, anxious, or on edge: 0 = Not at all Not being able to stop or control worryin = Not at all Worrying too much about different things: 0 = Not at all Trouble relaxin = Not at all Being so restless that it is hard to sit still: 0 = Not at all Becoming easily annoyed or irritable: 0 = Not at all Feeling afraid as if something awful might happen: 0 = Not at all Total KATARZYNA-7 score (0-4 normal; 5-9 mild; 10-14 moderate; 15-21 severe): 0 Source: Developed by Drs. Asaf Adler, Rosa Elena Locke, James Mendez and colleagues, with an educational veronica from [employer]. KATARZYNA-7 Assessment Billing KATARZYNA-7 Assessment Tool: KATARZYNA-7 Assessment 25151 Review of Systems Const All systems reviewed & are unremarkable except as noted in HPI and below Card Denies chest pain at rest, Denies chest pain with activity, Denies edema, Denies irregular heart rhythm, Denies claudication, Denies dyspnea, Denies dyspnea on exertion, Denies orthopnea, Denies paroxysmal nocturnal dyspnea and Denies slow heart rate Resp Denies cough, Denies dyspnea and Denies dyspnea on exertion GI Denies abdominal pain, Denies change in bowel habits, Denies excessive flatus, Denies nausea and Denies vomiting Denies urinary incontinence, Denies urinary hesitancy and Denies urinary urgency Physical exam (Primary Care) Vital Signs: Last Vital Signs Pulse 70 06/09/25 13:31 BP 132/80 06/09/25 13:31 Pulse Ox 98 06/09/25 13:31 Oxygen Delivery Method Room Air 06/09/25 13:31 BMI result Body Mass Index 29.8 Tobacco/Smoking Status: Tobacco use Status Tobacco use date assessed 06/09/25 06/09/25 13:36 Patient Tobacco Use Status Former Tobacco user 06/09/25 13:36 Tobacco use type Cigarette 06/09/25 13:36 e-Cigarette/Vaping Use Never Used 06/09/25 13:36 PHQ-9: PHQ-9 Score PHQ-9: Total score 1 06/09/25 13:36 Depression Screening Interpretation: Negative Thrive Assessment: Date of Thrive Assessment Date Thrive assessed 06/09/25 06/09/25 13:36 Currently or been in a relationship where the following occur: No concerns reported HENAL Head: Yes normal to inspection, Yes normocephalic and Yes atraumatic Ears: external ears normal Eyes General: appearance normal, both eyes and all related structures Eyelids: Yes eyelids normal Conjunctivae: conjunctivae normal Neck Neck: Yes normal visual inspection and Yes supple Resp Effort & Inspection: normal respiratory effort Auscultation: clear to auscultation bilaterally Cardio Jugular venous distension: no JVD Rate: regular rate Rhythm: regular rhythm Heart sounds: S1 normal heart sound present and S2 normal heart sound present GI Inspection: Yes normal to inspection Palpation (GI): Soft to palpation and nontender Auscultation: normal bowel sounds Skin General skin exam: no rashes or lesions noted Neuro General: no focal motor deficits Extrem General: Yes full ROM Psych Appearance: grossly normal Coding Level of Care Code Est Pt Prev Care 40-64y(83935) Diagnoses Annual physical exam Z00.00 Additional Codes PHQ-9 - 63228 - PHQ-9 Billing: Yes ([id number]) KATARZYNA-7 Assessment Billing - KATARZYNA-7 Assessment Tool: KATARZYNA-7 Assessment 55149 ([id number]) Time Spent (min) 30 Assessment & Plan Assessment & Plan (1) Annual physical exam: Code(s): Z00.00 - Encounter for general adult medical examination without abnormal findings Category: Medical Plan Plan 1. Encounter for general adult medical examination without abnormal findings Z00.00 The patient presented for an annual physical exam. She declined the influenza vaccination. A tetanus vaccine was recommended, as her last immunization was approximately 22 years prior. Screening labs will be ordered to check cholesterol, glucose, and kidney and liver function. Orders: Orders Lipid Panel Today E78.5 - Hyperlipidemia, unspecified Comprehensive [place]. Panel Fast Today Z00.00 - Encounter for general adult medical examination without abnormal findings Medications: Refilled cyclobenzaprine 10 mg PO TID PRN 90 tabs 1RF muscle spasm 30 days lidocaine 5% leave on most painful area for up to 12 hrs 1 patch topical DAILY 15 ea 0RF sumatriptan succinate do not exceed 4 doses per 24 hrs 50 mg PO Q2-4H PRN 9 tabs 0RF migraine headache 30 days G43.009 - Migraine without aura, not intractable, without status migrainosus topiramate 25 mg PO BEDTIME 90 tabs 0RF 90 days G43.009 - Migraine without aura, not intractable, without status migrainosus ibuprofen 600 mg PO Q8H PRN 10 tabs 0RF pain
--- OUTSIDE RECORDS SUMMARY | 2025-06-09 17:14 | XMS_ITS | Clinical Summary ---
Author Organization [facility] Address [id number] [place] [id number] Care Team Providers Care Senior Business Analyst Name Role Phone Rosamaria Khan MD Primary Care Provider Surgical History Surgery Date Site/Laterality Comments TUBAL [...] Health Maintenance Due Date Last Done Comments DTaP,Tdap,and Td Vaccines (1 - Tdap) 2001 Hepatitis B Vaccines (1 of 3 - 19+ 3-dose series) 2001 HPV Vaccines (1 - 3-dose SCDM series) 2009 HIV Screening 07/21/2022 Hepatitis C Screening 07/21/2022 Social Influencers of Health Screening 07/21/2022 Depression Screening 08/12/2024 Breast Cancer Screening 04/11/2025 04/11/2023 COVID-19 Vaccine ( - season) 2025 Influenza Vaccine (#1) 2025 Cervical Cancer Screening: Pap Smear 03/28/2026 03/28/2023, 01/28/2020, 09/10/2018, Additional history exists RSV Immunization Adult Patients (1 - 1-dose 75+ series) 2057 HIB Vaccines Aged Out No longer eligi [...] on patient's age to complete this topic Pneumococcal Vaccine: Pediatrics (0 to 5 Years) and At-Risk Patients (6 to 49 Years) Aged Out No longer eligible based on [...] RESULTING AGENCY - 04/08/2023 7:30 AM EDT [id number] THINPREP PAP: NEGATIVE FOR SQUAMOUS INTRAEPITHELIAL LESION AND MALIGNANCY . SHIFT IN JEANNE, SUGGESTIVE OF BACTERIAL VAGINOSIS. NOTE: THIS PAP TEST COULD NOT BE IMAGED UTILIZING THE IMAGING SYSTEM AND REQUIRED MANUAL REVIEW. SUPRIYA BRYAN , CT(ASCP) (CASE ELECTRONICALLY SIGNED 04 07 2023) RESULT OF APTIMA HIGH RISK HPV ASSAY: HIGH RISK HPV: NEGATIVE (SEROTYPES 16,18,31,33,35,39,45,51,52,56,58,59,66,68) COMPLETED ON 2023-04-01 ADEQUACY: SATISFACTORY ENDOCERVICAL/TRANSFORMATION ZONE COMPONENT ABSENT. SOURCE: THINPREP PAP HPV ANY DX: REFLEX 16 AND 18, CERVICAL CLINICAL INFORMATION: HPV ANY DIAGNOSIS. HORMONES, PAP HX NEG 2019, LMP 03/16/23, [Z01.419] [facility] CYTOLOGY ORDERABLES Final Result HISTORICAL TESTING LAB RESULTING AGENCY from Last 3 Months or Most Recently Relevant to Health Maintenance Care Teams Senior Business Analyst Relationship Specialty Start Date End Date Rosamaria Khan MD [address] [place] [address] , [address] [facility] D/B/A: [facility] [place] PCP - General 01/14/23
== END 2025-06-09 14:27 | disposition home or self-care (01) ==
LOC: HO.HMCH 13:28
PROVIDERS: PCP Internal Medicine; Visit Provider Internal Medicine
DX: Z00.00 Encounter for general adult medical examination without abnormal findings (principal)

== ENCOUNTER → 2025-06-09 13:27 | Outpatient (BNVA) | payer OTHER, SELFPAY | PROVIDERS: PCP Internal Medicine; Visit Provider Internal Medicine | DX: Z00.00 Encounter for general adult medical examination without abnormal findings (principal); E78.5 Hyperlipidemia, unspecified; G43.009 Migraine without aura, not intractable, without status migrainosus | CPT/HCPCS: 96127; 99396 ==

== ENCOUNTER 2025-06-14 10:10 | Outpatient (REF) | payer OTHER, SELFPAY ==
[2025-06-14 11:32] LABS: Alanine Aminotransferase 20 U/L (0-31); Albumin Level 4.4 g/dL (3.5-5.0); Alkaline Phosphatase 79 U/L (39-117); Anion Gap 8 (12-20); Aspartate Amino Transferase 24 U/L (5-31); Blood Urea Nitrogen 10 mg/dL (9-16); Calcium 8.4 mg/dL (8.4-10.2); Carbon Dioxide 25 mmol/L (22-29); Chloride 110 mmol/L (96-108); Cholesterol 182 mg/dL (<200); Estimated Glomerular Filt Rate > 60; HDL Cholesterol 36 mg/dL (>40); Potassium 4.0 mmol/L (3.3-5.1); Sodium 139 mmol/L (135-145); Total Protein 7.4 g/dL (6.5-8.0); Triglycerides 130 mg/dL (<150)
--- OUTSIDE RECORDS SUMMARY | 2025-06-14 12:08 | XMS_ITS | Clinical Summary ---
Author Organization [facility] Address [address] [place] [id number] Care Team Providers Care Power Washer Name Role Phone Rosamaria Khan MD Primary Care Provider [phone] Surgical History Surgery Date Site/Laterality Comments TUBAL [...] RESULTING AGENCY - 04/08/2023 7:30 AM EDT [id number] THINPREP PAP: NEGATIVE FOR SQUAMOUS INTRAEPITHELIAL LESION [...] NEG 2019, LMP 03/16/23, [Z01.419] [facility] CYTOLOGY ORDERABLES Final Result HISTORICAL TESTING LAB RESULTING AGENCY from Last 3 Months or Most Recently Relevant to Health Maintenance Care Teams Power Washer Relationship Specialty Start Date End Date Rosamaria Khan MD [address] [place] [address] , [address] [facility] D/B/A: [facility] [place] PCP - General 01/14/23
== END 2025-06-14 10:11 | disposition home or self-care (01) ==
LOC: HO.LAB 10:10
PROVIDERS: PCP Internal Medicine; Visit Provider Internal Medicine
DX: Z00.00 Encounter for general adult medical examination without abnormal findings (principal); E78.5 Hyperlipidemia, unspecified
CPT/HCPCS: 36415; 80053; 80061